=== PATIENT | male | born 1945 | race Caucasian/White ===

== ENCOUNTER 2016-12-27 22:47 | Emergency (ER) | payer OTHER ==
[~2016-12-27] VITALS: Ht 182.9 cm; Wt 96.3 kg
[2016-12-27 23:25] LABS: HEMATOCRIT 44.2 % (38.0-50.0); MCH 30.2 PG (29.0-34.0); MCHC 33.9 G/DL (30.0-36.0); MCV 89.1 FL (86-99); PLATELET COUNT 153 K/uL (156-360); RBC DIS.WIDTH-CV 13.2 % (11.8-14.6); RED BLOOD COUNT 4.96 M/uL (4.00-5.50); WHITE BLOOD COUNT 10.4 K/uL (4.1-10.2)
[2016-12-27 23:34] LABS: CHLORIDE 105 mEq/L (99-109); POTASSIUM 4.6 mEq/L (3.7-5.4); SODIUM 138 mEq/L (136-147)
[2016-12-27 23:35] LABS: ADD MIUA? YES; BILIRUBIN NEGATIVE; BLOOD SMALL; COLOR YELLOW ((YELLOW)); GLUCOSE (STRIP) >=500; KETONES 5; LEUKOCYTES NEGATIVE; NITRITE NEGATIVE; PROTEIN (STRIP) NEGATIVE; SPECIFIC GRAVITY 1.015 (1.000-1.030); UROBILINOGEN 0.2 MG/DL (0.2-1.0)
[2016-12-27 23:36] LABS: GLUCOSE 249 mg/dL (70-99)
[2016-12-27 23:37] LABS: ANION GAP 7 MEQ/L (2-14)
[2016-12-27 23:38] LABS: TOTAL BILIRUBIN 0.4 mg/dL (0.0-1.0)
[2016-12-27 23:40] LABS: ALKALINE PHOSPHATASE 56 IU/L (3-129); GFR ESTIMATE (CALCULATED) 58 mL/min/
[2016-12-27 23:41] LABS: UREA NITROGEN (BUN) 24 mg/dL (9-23)
[2016-12-27 23:59] LABS: BACTERIA 1+ /HPF; CASTS NONE SEEN /LPF; CRYSTALS NONE SEEN; EPITHELIAL CELLS RARE /HPF; MUCUS RARE /LPF; UCUL ADDED? NO; WHITE BLOOD CELLS NONE SEEN /HPF (0-5)
[2016-12-28] MEDS ORDERED: ATORVASTATIN CA10 MG PO (00:41)
[2016-12-28] MEDS ORDERED: MELOXICAM15 MG PO (00:41)
[2016-12-28] MEDS ORDERED: LISINOPRIL10 MG PO (00:41)
[2016-12-28] MEDS ORDERED: FLONASE16 G1 BOTH NARES (00:42)
[2016-12-28] MEDS ORDERED: MONTELUKAST SOD10 MG PO (00:42)
[2016-12-28] MEDS ORDERED: METFORMIN HCL1000 MG PO (00:42)
[2016-12-28] MEDS ORDERED: TRADJENTA5 MG PO (00:43)
[2016-12-28] MEDS ORDERED: PERCOCET 5/31 TABLET PO (02:18)
[2016-12-28] MEDS ORDERED: FLOMAX0.4 MG PO (02:18)
[2016-12-28] MEDS ORDERED: ZOFRAN ODT4 MG PO (02:18)
[2016-12-28 02:40] VITALS: BP 131/81
== END 2016-12-28 02:43 | disposition home or self-care (01) ==
LOC: EME 22:47
DX: N13.2 Hydronephrosis with renal and ureteral calculous obstruction (principal); I10 Essential (primary) hypertension; E78.5 Hyperlipidemia, unspecified; E11.9 Type 2 diabetes mellitus without complications; Z79.84 Long term (current) use of oral hypoglycemic drugs
CPT/HCPCS: 74176; 80053; 81003; 85027; 99281; 99285; J1885

== ENCOUNTER 2017-01-09 10:48 | Day surgery (SDC) | payer OTHER ==
[~2017-01-09] VITALS: Ht 182.9 cm; Wt 93.0 kg
[~2017-01-09 10:48] MED LIST: ASPIR 8181 M1 PO; ATORVASTATIN CA10 MG PO; FLOMAX0.4 MG PO; FLONASE16 G1 BOTH NARES; LISINOPRIL10 MG PO; MELOXICAM15 MG PO; METFORMIN HCL1000 MG PO; MONTELUKAST SOD10 MG PO; PERCOCET 5/31 TABLET PO; TORADOL10 MG PO; TRADJENTA5 MG PO; ZOFRAN ODT4 MG PO
[2017-01-09 12:00] LABS: POINT-OF-CARE METER ID UU14174212
[2017-01-09 12:09] VITALS: BP 124/64
[2017-01-09 14:15] LABS: POINT-OF-CARE METER ID UU13113675; POINT-OF-CARE USER ID 515036437
[2017-01-09 14:49] VITALS: BP 146/71
[2017-01-09 15:14] VITALS: BP 134/72
== END 2017-01-09 15:23 | disposition home or self-care (01) ==
LOC: SDC 10:48
PROVIDERS: Urology
DX: N20.2 Calculus of kidney with calculus of ureter (principal); I10 Essential (primary) hypertension; E11.9 Type 2 diabetes mellitus without complications; E78.00 Pure hypercholesterolemia, unspecified; Z87.891 Personal history of nicotine dependence
CPT/HCPCS: 74000; 76000; 82948; 93005; C1894; C2625; J0690; J1170; J2405; J3010